=== PATIENT | male | born 1950 | race Caucasian/White ===

== ENCOUNTER 2016-09-26 08:34 | Day surgery (SDC) | payer BC ==
[2016-09-24 11:39] VITALS: BMI 33.0
[2016-09-26] MEDS ORDERED: MIDAZOLAM HCL 2 MG/2 ML SINGLE DOSE VIAL ONE (08:50)
[2016-09-26] MEDS ORDERED: ceFAZolin SODIUM 1 GM VIAL ONE (08:50)
[2016-09-26] MEDS ORDERED: LIDOCAINE HCL/PF 2% SDV 5ML VIAL ONE (08:50)
[2016-09-26] MEDS ORDERED: LIDOCAINE HCL 2% (20ML MULTI-DOSE VIAL) NR ONE (09:08)
[2016-09-26] MEDS ORDERED: LIDOCAINE HCL 2% (50ML VIAL) INF ONE (09:30)
[2016-09-26 10:48] VITALS: BP 139/81; PULSE 59; TEMP 97.5
[2016-09-26] MEDS ORDERED: LACTATED RINGERS SOLUTION 1,000 ML IV SCH (11:00)
--- NOTE | 2016-09-26 11:30 | OP ---
DATE OF OPERATION: 09/26/2016 PREOPERATIVE DIAGNOSES: 1. Right carpal tunnel syndrome. 2. Right long trigger finger. POSTOPERATIVE DIAGNOSES: 1. Right carpal tunnel syndrome. 2. Right long trigger finger. OPERATIVE PROCEDURE: 1. Right carpal tunnel release. 2. Right long trigger finger release. ANESTHESIA: Local with sedation. COMPLICATIONS: None. ESTIMATED BLOOD LOSS: Minimal. INDICATIONS FOR PROCEDURE: The patient presented with the above findings indicated for operative treatment. Risks, benefits, and alternatives were discussed with the patient at length. Proper informed consent was obtained. DESCRIPTION OF PROCEDURE: After proper identification of patient and correct operative site, the patient was brought to the operating room and placed supine on the table, prominences well padded. Sedation was given by the anesthesiologist. Local anesthesia was given with 2% lidocaine. Right upper extremity was prepped and draped in a sterile fashion. A well-padded tourniquet was placed with sterile prep. Esmarch bandage used to exsanguinate the right upper extremity. Tourniquet was inflated to 250 mmHg. A longitudinal incision was made over the A1 ariana of the long finger. Incision was taken sharply through the skin with sharp and blunt dissection in the subcutaneous tissues. The A1 ariana was divided. The patient was asked to flex and extend his finger, and no further triggering was noted. The wound was irrigated with saline and repaired with a 5-0 nylon suture. A 2nd incision was made over the carpal canal longitudinally. Incision was taken sharply through the skin with sharp and blunt dissection through the subcutaneous tissue. Palmar fascia was divided longitudinally. The transverse carpal ligament along with the distal 4 cm of the antebrachial fascia was divided longitudinally under direct visualization with loupe magnification. This provided complete release of the median nerve at the wrist. The wound was irrigated with saline and repaired with a 5-0 nylon suture. Sterile dressings were applied. The patient was reversed from anesthesia and brought to the recovery room in stable condition. He tolerated the procedure well. MARCELLUS HAHN M.D. [id number]
[2016-09-26] MEDS ORDERED: ACETAMINOPHEN 325 MG TABLET (FP) PO PRN (11:49)
[2016-09-26] MEDS ORDERED: ONDANSETRON 4 MG/2 ML VIAL IVPUSH PRN (11:50)
[2016-09-26] MEDS ORDERED: oxyCODONE HCL 5 MG TABLET PO PRN (11:50)
== END 2016-09-26 10:55 | disposition home or self-care (01) ==
LOC: FASU 08:34
PROVIDERS: ATTEND Orthopaedic Surgery Hand Surgery
PROC: 0LN70ZZ Release Right Hand Tendon, Open Approach (ICD-10-PCS; 2016-09-26)
PROC: 01N50ZZ Release Median Nerve, Open Approach (ICD-10-PCS; principal; 2016-09-26 10:00)
DX: G56.01 Carpal tunnel syndrome, right upper limb (principal); M65.331 Trigger finger, right middle finger

== ENCOUNTER 2018-08-13 07:18 | Day surgery (SDC) | payer BC, OTHER ==
[2018-08-11 12:47] VITALS: BMI 36.5
[2018-08-13] MEDS ORDERED: MIDAZOLAM HCL 2 MG/2 ML SINGLE DOSE VIAL ONE ×2 (08:09→08:20)
[2018-08-13] MEDS ORDERED: PROPOFOL 20 ML ONE (08:10)
[2018-08-13] MEDS ORDERED: LIDOCAINE HCL 2% (50ML VIAL) NR ONE (08:23)
[2018-08-13] MEDS ORDERED: KETOROLAC TROMETHAMINE 30 MG/1 ML VIAL ONE (08:33)
[2018-08-13] MEDS ORDERED: ONDANSETRON 4 MG/2 ML VIAL ONE (08:33)
[2018-08-13] MEDS ORDERED: DEXAMETHASONE SOD PHOSPHATE 4 MG/1 ML VIAL ONE (08:33)
--- NOTE | 2018-08-13 09:29 | OP ---
DATE OF OPERATION: 08/13/2018 PREOPERATIVE DIAGNOSIS: Left long trigger-finger. POSTOPERATIVE DIAGNOSIS: Left long trigger-finger. OPERATIVE PROCEDURE: Left long trigger-finger release. SURGEON: Hua Hahn MD ANESTHESIA: Local with sedation. COMPLICATIONS: None. ESTIMATED BLOOD LOSS: Minimal. INDICATIONS FOR PROCEDURE: The patient presented with the above finding, was indicted for operative treatment. The risks, benefits, and alternatives were discussed with the patient at length. Proper informed consent was obtained. DESCRIPTION OF PROCEDURE: After proper identification of the patient and the correct operative site, the patient was brought to the operating room and placed supine on the operating room table. All bony prominences were well padded. Sedation with local anesthesia was given. Left upper extremity was prepped and draped in the usual sterile fashion. A tourniquet was inflated to 250 mmHg after sterile prep. A longitudinal incision was made over A1 ariana to the long finger. Incision was taken sharply through the skin with blunt dissection through subcutaneous tissues. A1 ariana was divided longitudinally. Patient was asked to flex and extend the hand, and no further triggering was noted. Wound was irrigated and repaired with a 5-0 fast-absorbing plain-gut suture. Sterile dressings were applied. Patient was reversed from anesthesia and brought to the recovery room in stable condition. He tolerated the procedure well. HUA HAHN M.D. [id number]
[2018-08-13 09:31] VITALS: TEMP 97.4
[2018-08-13 09:34] VITALS: BP 102/60; PULSE 68
[2018-08-13] MEDS ORDERED: ONDANSETRON 4 MG/2 ML VIAL IVPUSH PRN (09:40)
[2018-08-13] MEDS ORDERED: oxyCODONE HCL 5 MG TABLET PO PRN ×2 (09:40)
[2018-08-13] MEDS ORDERED: PROMETHAZINE HCL 25 MG/1 ML VIAL IVPUSH PRN (09:40)
== END 2018-08-13 09:44 | disposition home or self-care (01) ==
LOC: FASU 07:18
PROVIDERS: ATTEND Orthopaedic Surgery Hand Surgery
PROC: 0LN80ZZ Release Left Hand Tendon, Open Approach (ICD-10-PCS; principal; 2018-08-13 08:29)
DX: M65.332 Trigger finger, left middle finger (principal)